=== PATIENT | male | born 1950 | race Caucasian/White ===

== ENCOUNTER 2018-03-01 12:18 | Emergency (ER) | payer MEDICARE, OTHER ==
[2018-03-01 14:20] LABS: Basophils % (A) 0 %; Eosinophils # (A) 0.2 k/uL (0-0.7); Eosinophils % (A) 1 %; HCT 43.6 % (39.0-53.0); HGB 14.3 gm/dL (13.0-17.5); Lymphocytes # (A) 1.2 k/uL (1.0-4.8); Lymphocytes % (A) 9 %; MCH 28.9 pg (25.0-35.0); MCHC 32.8 g/dL (31.0-37.0); MCV 87.9 fL (80.0-100.0); Monocytes # (A) 1.3 k/uL (0-1.0); Monocytes % (A) 9 %; Neutrophils # (A) 11.1 k/uL (1.3-7.7); Neutrophils % (A) 79 %; Platelet Count 183 k/uL (150-450); RBC 4.97 m/uL (4.30-5.90); RDW 12.9 % (11.5-15.5)
--- NOTE | 2018-03-01 14:23 | XR ---
EXAMINATION TYPE: XR KUB DATE OF EXAM: 03/01/2018 COMPARISON: None INDICATION: Pain TECHNIQUE: Single view abdomen upright view FINDINGS: There is a nonspecific bowel gas pattern. No free air is evident. No differential air-fluid levels. Psoas margins are normal. No organomegaly is present. There is a 1.2 x 0.8 cm calcification adjacent to the L3 transverse process. Ureteral calcification i s not excluded. IMPRESSION: 1. Nonspecific abdomen. 2. Left ureteral stone is not excluded.
[2018-03-01 14:26] LABS: Albumin 4.3 g/dL (3.5-5.0); Calcium 9.1 mg/dL (8.4-10.2); Potassium 4.5 mmol/L (3.5-5.1); Total Bilirubin 0.9 mg/dL (0.2-1.3); Total Protein 7.5 g/dL (6.3-8.2)
[2018-03-01 14:40] LABS: Appearance,Urine Clear (Clear); Bilirubin,Urine Negative (Negative); Blood,Urine Trace (Negative); Color,Urine Yellow; Glucose,Urine (UA) Negative (Negative); Ketones,Urine 1+ (Negative); Leukocyte Esterase,Urine Negative (Negative); Mucus,Urine Rare /hpf; Nitrite,Urine Negative (Negative); Protein,Urine 1+ (Negative); RBC,Urine 6 /hpf (0-5); Urobilinogen,Urine <2.0 mg/dL (<2.0); WBC,Urine 4 /hpf (0-5)
--- NOTE | 2018-03-01 16:04 | CT ---
EXAMINATION TYPE: CT abdomen pelvis w con DATE OF EXAM: 03/01/2018 COMPARISON: None HISTORY: Lower abdominal pain, constipation and distention CT DLP: 1829.7 mGycm Automated exposure control for dose reduction was used. TECHNIQUE: Helical acquisition of images was performed from the lung bases through the pelvis. CONTRAST: Performed without Oral Contrast and with IV Contrast, patient injected with 80 mL of Isovue 300. FINDINGS: LUNG BASES: No significant abnormality is appreciated. LIVER/GB: No hepatic significant abnormality is appreciated. Small calculi are seen within the gallbl adder. PANCREAS: No significant abnormality is seen. SPLEEN: No significant abnormality is seen. ADRENALS: No significant abnormality is seen. KIDNEYS: There is a 7 mm obstructing left proximal ureteral calculus creating moderate left hydroneph rosis and asymmetric enhancement of the left kidney that is delayed. Punctate additional left lower p ole nonobstructing calculus is seen. Right kidney remains unremarkable. FREE AIR: No free air is visualized. REPRODUCTIVE ORGANS: Central zone calcifications are seen within the heterogenous prostate gland. URINARY BLADDER: Incompletely distended and incompletely evaluated. ADENOPATHY: No greater than 1 cm short axis lymph nodes are seen within the abdomen or pelvis. OSSEOUS STRUCTURES: Moderate multilevel degenerative changes of the spine are seen. BOWEL: Few scattered colonic diverticula are seen without pericolonic fat stranding. Only minimal re tained colonic stool is seen in this patient with a history of constipation. No dilated small bowel. OTHER: 5.1 cm right anterior flank complex fluid collection is seen deep to the skin surface. Correla te with prior trauma and seroma or large subcutaneous sebaceous cyst. Fat filled periumbilical hernia is present. IMPRESSION: OBSTRUCTING 7 MM LEFT PROXIMAL URETERAL CALCULUS WITH MODERATE LEFT HYDRONEPHROSIS AND ALTERED RENAL PHYSIOLOGY WITH DELAYED EXCRETION. ADDITIONAL PUNCTATE NONOBSTRUCTING LEFT RENAL CALCULUS IS SEEN. 2. RIGHT FLANK COMPLEX CYSTIC LESION ABUTTING THE SKIN SURFACE MEASURING 5.1 CENTIMETERS FOR WHICH CL INICAL CORRELATION WITH APPEARANCE AND ANY PRIOR HISTORY OF TRAUMA IS RECOMMENDED THIS COULD REPRE SENT A POST TRAUMATIC SEROMA, SEBACEOUS CYST, OR OTHER ETIOLOGY. 3. CHOLELITHIASIS WITHOUT CT EVIDENCE OF ACUTE CHOLECYSTITIS.
[2018-03-01] MEDS ORDERED: MAGNESIUM CITRATE 296 ML BOTTLE PO ONE (16:46)
[2018-03-01] MEDS ORDERED: DOCUSATE 283 MG/5 ML ENEMA RECTAL STA (16:46)
--- NOTE | 2018-03-01 16:51 | ED ---
General Adult HPI - General Chief complaint: Abdominal Pain Stated complaint: poss bowel obstruction Source: patient, RN notes reviewed, old records reviewed Mode of arrival: ambulatory Limitations: no limitations - History of Present Illness Initial comments: 67-year-old male patient in the past history including coronary artery disease, congestive heart failure status post defibrillator presents to ED with constipation and abdominal pain. Patient states he has a long history of constipation. Patient states that he most recently began having constipation symptoms approximately 6 weeks ago. Patient has been seen by his PCP multiple times, pharmacologic interventions included magnesium citrate and others have not been effective in resolving this patient's constipation. Approximately 2 weeks ago the patient began noticing a decrease in stool caliber. Back is, patient states that they are thin like a pencil. For approximately 4 days the patient has been experiencing nausea with occasional emesis after meals. The patient states that he has had approximately 3 episode of emesis over the last 4 days. Patient denies melena, bright red blood per rectum. Patient states that he has never had a colonoscopy, however does yearly heart blood testing is limited any abnormalities. Patient additionally complains of bilateral flank pain. Patient states that this is a dull pain that does not radiate. Patient states that this pain has been going on for approximately 2 weeks. Patient denies chest pain, shortness of breath, or any other complaints. Systemic: Pt denies fatigue, myalgia, fever/chills, rash. Pt denies weakness, night sweats, weight loss. Neuro: Pt denies headache, visual disturbances, syncope or pre-syncope. HEENT: Pt denies ocular discharge or irritation, otalgia, rhinorrhea, pharyngitis or notable lymphadenopathy. Cardiopulmonary: Pt denies chest pain, SOB, heart palpitations, dyspnea on exertion. : Pt denies dysuria, burning w/ urination, frequency/urgency. Denies new onset urinary or bowel incontinence. MSK: Pt denies myalgia, loss of strength or function in extremities. - Related Data Home Medications Medication Instructions Recorded Confirmed Amiodarone HCl [Pacerone] 400 mg PO DAILY 03/01/18 03/01/18 Atorvastatin [Lipitor] 40 mg PO HS 03/01/18 03/01/18 Baclofen 10 mg PO Q12HR 03/01/18 03/01/18 Carvedilol [Coreg] 3.125 mg PO BID 03/01/18 03/01/18 Docusate [Colace] 1 - 2 cap PO DAILY 03/01/18 03/01/18 Furosemide [Lasix] 40 mg PO DAILY 03/01/18 03/01/18 Lactulose 10 gm PO DAILY 03/01/18 03/01/18 Sacubitril/Valsartan [Entresto 24 1 tab PO BID 03/01/18 03/01/18 mg-26 mg Tablet] rOPINIRole HCL [Requip] 1 mg PO HS 03/01/18 03/01/18 Allergies Allergy/AdvReac Type Severity Reaction Status Date / Time latex Allergy Rash/Hives Verified 03/01/18 14:27 Review of Systems ROS Statement: Those systems with pertinent positive or pertinent negative responses have been documented in the HPI. ROS Other: All systems not noted in ROS Statement are negative. 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 HEENT: NC/AT, trachea midline, neck supple, no lymphadenopathy. Posterior pharynx non erythematous, without exudates. External ears appear normal, without discharge. Mucous membranes moist. Eyes PERRLA, EOM intact. There is no scleral icterus. No pallor noted. Cardiopulmonary: RRR, no murmurs, rubs or gallops, no JVD noted. Lungs CTAB in anterior and posterior [place]. No peripheral edema. Abdominal exam: Abdomen soft, mildly distended. Abdomen non-tender to palpation in all 4 quadrants. [place] sign negative. No [place] or simmons turners sign. Rebound tenderness negative. No ecchymoses. Bowel sounds active in LLQ. No hepatosplenomegaly. Mild bilateral flank pain with palpation bilaterally, CVA tenderness negative, no pain on palpation of bony structures including ribs. Neuro: CN II-XII grossly intact. Limitations: no limitations Course Vital Signs 03/01/18 12:49 Temperature 98.4 F Pulse Rate 64 Respiratory 18 Rate Blood Pressure 156/72 O2 Sat by Pulse 98 Oximetry Medical Decision Making - Medical Decision Making 67-year-old male patient passed history including CAD, and, CHF. Just to ED with constipation, and bilateral flank pain. Patient had previous complaints of constipation, was seen by his primary care physician. Primary care physician tried multiple remedies without sustained success. On physical exam abdomen is slightly distended but soft. Abdomen is nontender to palpation, [place] sign is negative. Flanks are bilaterally mildly tender to palpation. CVA tenderness is negative bilaterally. Laboratory evaluations were conducted. These included CBC, CMP, UA, amylase/lipase, lactic acid. CBC displayed a leukocytosis of 14.0. CMP displayed increase in creatinine from baseline. UA displayed +1 protein and trace blood. A CT of the abdomen and pelvis with contrast was obtained. This displayed an obstructing 7 mm left proximal ureteral calculus and moderate left hydronephrosis. The displayed an additional nonobstructing left renal calculi. Cholelithiasis were also visualized on the CT. Patient does not have right upper quadrant pain. Anderson sign negative. Leukocytosis is likely 2/2 renal calculi, no other s/sx of infection. On CT an abundance of colic stool was not visualized. Patient to receive magnesium citrate and Therevac here. Pt had bowel movement after threavac. Patient to follow up with urology in one day for kidney stone. Patient to follow up with primary care physician for continued treatment of constipation complaints, and recommendation of a colonoscopy. Patient does yearly occult blood testing, but has never had a colonoscopy. Patient to return to ED if hematuria is noted, increased pain on the flank and also in the abdomen, or any other complaints. This case was discussed at length with Dr. Coburn. Disposition Clinical Impression: Renal calculi Disposition: HOME SELF-CARE Condition: Good Instructions: Kidney Stones (ED) Additional Instructions: Patient to adhere to previously discussed treatment plan. Patient to follow up with PCP in 1-2 days and urology. Patient to return to ED if symptoms do not improve. Is patient prescribed a controlled substance at d/c from ED?: No Referrals: Nonstaff,Physician [Primary Care Provider] - 1-2 days Tre Epps MD [STAFF PHYSICIAN] - 1-2 days Time of Disposition: 17:38
--- NOTE | 2018-03-01 18:01 | ED ---
Medical Decision Making - Medical Decision Making Pt dc w/ flomax and ibuprofen. - Lab Data Result diagrams: 03/01/18 14:00 03/01/18 14:00 Lab Results 03/01/18 03/01/18 03/01/18 Range/Units 14:00 14:00 14:00 WBC 14.0 H (3.8-10.6) k/uL RBC 4.97 (4.30-5.90) m/uL Hgb 14.3 (13.0-17.5) gm/dL Hct 43.6 (39.0-53.0) % MCV 87.9 (80.0-100.0) fL MCH 28.9 (25.0-35.0) pg MCHC 32.8 (31.0-37.0) g/dL RDW 12.9 (11.5-15.5) % Plt Count 183 (150-450) k/uL Neutrophils % 79 % Lymphocytes % 9 % Monocytes % 9 % Eosinophils % 1 % Basophils % 0 % Neutrophils # 11.1 H (1.3-7.7) k/uL Lymphocytes # 1.2 (1.0-4.8) k/uL Monocytes # 1.3 H (0-1.0) k/uL Eosinophils # 0.2 (0-0.7) k/uL Basophils # 0.0 (0-0.2) k/uL Sodium 140 (137-145) mmol/L Potassium 4.5 (3.5-5.1) mmol/L Chloride 102 (98-107) mmol/L Carbon Dioxide 26 (22-30) mmol/L Anion Gap 12 mmol/L BUN 26 H (9-20) mg/dL Creatinine 1.62 H (0.66-1.25) mg/dL Est GFR (CKD-EPI)AfAm 50 (>60 ml/min/1.73 sqM) Est GFR (CKD-EPI)NonAf 43 (>60 ml/min/1.73 sqM) Glucose 105 H (74-99) mg/dL Plasma Lactic Acid Domenic 0.9 (0.7-2.0) mmol/L Calcium 9.1 (8.4-10.2) mg/dL Total Bilirubin 0.9 (0.2-1.3) mg/dL AST 23 (17-59) U/L ALT 26 (21-72) U/L Alkaline Phosphatase 93 (38-126) U/L Total Protein 7.5 (6.3-8.2) g/dL Albumin 4.3 (3.5-5.0) g/dL Amylase 47 (30-110) U/L Lipase 63 (23-300) U/L Urine Color Urine Appearance (Clear) Urine pH (5.0-8.0) Ur Specific [place] (1.001-1.035) Urine Protein (Negative) Urine Glucose (UA) (Negative) Urine Ketones (Negative) Urine Blood (Negative) Urine Nitrite (Negative) Urine Bilirubin (Negative) Urine Urobilinogen (<2.0) mg/dL Ur Leukocyte Esterase (Negative) Urine RBC (0-5) /hpf Urine WBC (0-5) /hpf Urine Mucus (None) /hpf 03/01/18 Range/Units 14:00 WBC (3.8-10.6) k/uL RBC (4.30-5.90) m/uL Hgb (13.0-17.5) gm/dL Hct (39.0-53.0) % MCV (80.0-100.0) fL MCH (25.0-35.0) pg MCHC (31.0-37.0) g/dL RDW (11.5-15.5) % Plt Count (150-450) k/uL Neutrophils % % Lymphocytes % % Monocytes % % Eosinophils % % Basophils % % Neutrophils # (1.3-7.7) k/uL Lymphocytes # (1.0-4.8) k/uL Monocytes # (0-1.0) k/uL Eosinophils # (0-0.7) k/uL Basophils # (0-0.2) k/uL Sodium (137-145) mmol/L Potassium (3.5-5.1) mmol/L Chloride (98-107) mmol/L Carbon Dioxide (22-30) mmol/L Anion Gap mmol/L BUN (9-20) mg/dL Creatinine (0.66-1.25) mg/dL Est GFR (CKD-EPI)AfAm (>60 ml/min/1.73 sqM) Est GFR (CKD-EPI)NonAf (>60 ml/min/1.73 sqM) Glucose (74-99) mg/dL Plasma Lactic Acid Domenic (0.7-2.0) mmol/L Calcium (8.4-10.2) mg/dL Total Bilirubin (0.2-1.3) mg/dL AST (17-59) U/L ALT (21-72) U/L Alkaline Phosphatase (38-126) U/L Total Protein (6.3-8.2) g/dL Albumin (3.5-5.0) g/dL Amylase (30-110) U/L Lipase (23-300) U/L Urine Color Yellow Urine Appearance Clear (Clear) Urine pH 6.0 (5.0-8.0) Ur Specific [place] 1.020 (1.001-1.035) Urine Protein 1+ H (Negative) Urine Glucose (UA) Negative (Negative) Urine Ketones 1+ H (Negative) Urine Blood Trace H (Negative) Urine Nitrite Negative (Negative) Urine Bilirubin Negative (Negative) Urine Urobilinogen <2.0 (<2.0) mg/dL Ur Leukocyte Esterase Negative (Negative) Urine RBC 6 H (0-5) /hpf Urine WBC 4 (0-5) /hpf Urine Mucus Rare H (None) /hpf Disposition Clinical Impression: Renal calculi Disposition: HOME SELF-CARE Condition: Good Instructions: Kidney Stones (ED) Additional Instructions: Patient to adhere to previously discussed treatment plan. Patient to follow up with PCP in 1-2 days and urology. Patient to return to ED if symptoms do not improve. Prescriptions: Ibuprofen [Motrin] 600 mg PO Q6HR PRN #20 day PRN Reason: Pain Tamsulosin [Flomax] 0.4 mg PO DAILY #10 cap Is patient prescribed a controlled substance at d/c from ED?: No Referrals: Tre Epps MD [STAFF PHYSICIAN] - 1-2 days Nonstaff,Physician [Primary Care Provider] - 1-2 days
[2018-03-01 18:12] VITALS: BP 102/71; PULSE 60; RESP 18; TEMP 99.2
== END 2018-03-01 18:11 | disposition home or self-care (01) ==
LOC: SUPCPDRO 12:18 → EC 12:18
DX: N13.2 Hydronephrosis with renal and ureteral calculous obstruction (principal); K80.20 Calculus of gallbladder without cholecystitis without obstruction; K59.00 Constipation, unspecified; I48.91 Unspecified atrial fibrillation; I25.10 Atherosclerotic heart disease of native coronary artery without angina pectoris; I50.9 Heart failure, unspecified; E78.5 Hyperlipidemia, unspecified; Z79.02 Long term (current) use of antithrombotics/antiplatelets; Z79.899 Other long term (current) drug therapy; Z91.048 Other nonmedicinal substance allergy status; Z85.820 Personal history of malignant melanoma of skin; Z95.810 Presence of automatic (implantable) cardiac defibrillator
CPT/HCPCS: 36415; 80053; 82150; 83605; 83690; 85025; 81001; 74018; 74177; 99285; Q9967